=== PATIENT | female | born 1970 | race Caucasian/White ===

== ENCOUNTER → 2020-03-22 14:31 | Outpatient (CLI) | payer OTHER, SELFPAY ==
[2020-03-24 13:42] LABS: COVID19 Sendout Not Detected (Not Detect)
== END ==
PROVIDERS: PCP Physician Assistant; Visit Provider Physician Assistant
DX: Z01.818 Encounter for other preprocedural examination (principal)
CPT/HCPCS: 87635

== ENCOUNTER 2020-03-25 13:42 | Day surgery (SDC) | payer OTHER, SELFPAY ==
[2020-03-24 07:32] VITALS: BMI 48.7
[2020-03-25] VITALS (8 sets, daily range): BP systolic 126–224; BP diastolic 78–116; PULSE 87–100; RESP 12–18; TEMP 36.1–36.3; O2SAT 94–98; BMI 48.7
--- NOTE | 2020-03-25 | DI.RAD.S_ITS ---
PROCEDURE: XR LUMBAR SPINE 2-3V INDICATIONS: L5-S1 LAMINECTOMY TECHNIQUE: 2 views of the lumbar spine were acquired. COMPARISON: None. FINDINGS: Spot fluoroscopic intraoperative views demonstrate surgical instrumentation with the tip projecting in the posterior paraspinal soft tissues of the level of L5-S1. Dictated by: Karri Edmonds M.D. on 03/26/2020 at 12:54 Approved by: Karri Edmonds M.D. on 03/26/2020 at 13:01
--- NOTE | 2020-03-25 13:57 | PM.PREOP ---
Pre-operative Note COVID-19 COVID-19 status: Negative Result date/Date tested (Pos, Neg/Pending): 03/23/20 Interval Note History & Physical reviewed/Exam performed by Physician: Yes Changes to H&P: No
[2020-03-25] MEDS: LACTATED RINGERS 1,000 ML 42 ML IV (14:29)
[2020-03-25] MEDS: CEFAZOLIN 2 GM/100 ML FROZ.PIGGY IV (14:43)
--- NOTE | 2020-03-25 15:07 | SUR.OPER ---
Prone on spine table, head in foam head support, padded chest and pelvic supports, gel pad at knees, lower legs supported by pillows; nipples, genitalia and toes free of pressure, arms secured on foam padded arm boards at <90 degrees abduction. Tape over blanket at thigh secured to table.
[2020-03-25] MEDS: BUPIVACAINE 0.25% W/ EPI 30 ML VIAL INJ (15:12)
[2020-03-25] MEDS: methylPREDNISolone acet DEPO 40 MG/ML VIAL INJ (15:12)
--- NOTE | 2020-03-25 16:00 | P.OP_ITS ---
Operative Date/Time/Diagnoses Date of procedure: 03/25/20 Time of procedure: 15:00 Pre-op diagnosis: 1. L5-S1 disc herniation 2. L5-S1 radiculopathy Post-op diagnosis: same Procedure & Clinicians Procedure: 1. L5-S1 left microdiscectomy 2. Utitilization of microsurgical technique and operating microscope Same procedure as scheduled: Yes Indications: Patient has been having chronic back pain and worsening lumbar radiculopathy. Patient failed multiple conservative management with worsening pain weakness and numbness in her lower extremity. Patient has been having difficulty performing activity of daily living. After discussing risks benefits of treatment options, patient elected proceed with surgery. Surgeon: Rocio Ambrosio Analog Design Engineer: Tiara Upton'Brien Click Yes if Unassisted: No Anesthesia Type: General Operative Notes Closure Type: primary Specimen(s): none sent Estimated Blood Loss (mL): 5 Blood products transfused: none Procedure in detail: Patient was seen in the preoperative area. Risks and benefits of the surgery was discussed with the patient. Informed consent was obtained from the patient and placed in the chart. Surgical site was marked. Patient was taken to the operative room. General anesthesia was administered. Prophylactic antibiotic was given to the patient less than 30 min before the incision was made. Patient was placed into a prone position on the Fidel table. Patient's back was then prepped and draped in the sterile fashion. Time- out was performed at this time. Using AP and lateral C-arm imaging the interval between L5-S1 was identified and marked on patient's back. A 1 inch incision 1 in from midline was made on the left side. The fascia was incised in line with skin incision. Globus MARS retractors was placed inside the incision and docked onto the L5 lamina. Using microsurgical technique and operating microscope, a L5 laminotomy was performed using a Kerrison rongeur. Liagamentum flavum was resected at the site of the laminotomy. The disc space at L5-S1 was identified. Microdiscectomy was performed by incising the annulus with #11 blade. Microcurettes and pituitary was used to removed herniated disc fragments of disc from the epidural space. Patient's disc fragments was found to be adhered to the vertebral body as well as partially calcified due to the chronicity of the herniation. The fragments of disc was carefully resected along with resection of the scar tissue. After the microdiskectomy was completed, the area medial lateral superior and inferior to the area of the microdiskectomy was inspected and explored using a micro curette. No other impinging structure was identified. The wound was then irrigated with sterile normal saline. 40 mg Depo-Medrol was placed into the epidural space. The deep fascia was closed with 1-0 Vicryl. The subcutaneous tissue was closed with 2-0 Vicryl. The skin was closed with skin carolina. Patient tolerated the procedure well. There were no complications. Patient was transferred recovery room in stable condition. Complications: none Post-operative Condition: stable Disposition: same day surgery Plan for aftercare: Discharge to home
--- NOTE | 2020-03-25 16:21 | SUR.PHASEI ---
Notified Anesthesiology of BP of 157/100; No new orders. Patient asymptomatic.
--- NOTE | 2020-03-25 17:03 | SUR.PHASEII ---
Discharged patient in stable condition with all belongings returned. Home with in stable condition.
== END 2020-03-25 17:00 | disposition home or self-care (01) ==
PROVIDERS: PCP Physician Assistant; Referring Provider Physician Assistant; Visit Provider Orthopaedic Surgery Orthopaedic Surgery of the Spine
PROC: (CPT 63030; principal; 2020-03-25 15:15)
DX: M51.16 Intervertebral disc disorders with radiculopathy, lumbar region (principal); E11.9 Type 2 diabetes mellitus without complications; I25.2 Old myocardial infarction; I25.10 Atherosclerotic heart disease of native coronary artery without angina pectoris; I10 Essential (primary) hypertension; E78.5 Hyperlipidemia, unspecified; Z79.84 Long term (current) use of oral hypoglycemic drugs
CPT/HCPCS: 63030; 72100; 76000; J0690; J1030; J1100; J2250; J2405; J2704; J3010

== ENCOUNTER → 2020-08-05 15:19 | Outpatient (CLI) | payer OTHER, SELFPAY ==
[2020-08-05 16:18] LABS: COVID19 -Nasal RAPID Negative (Negative)
== END ==
PROVIDERS: PCP Physician Assistant; Visit Provider Physician Assistant
DX: Z11.59 Encounter for screening for other viral diseases (principal)
CPT/HCPCS: 87635

== ENCOUNTER 2020-08-07 12:11 | Day surgery (SDC) | payer OTHER, SELFPAY ==
[2020-08-05 07:50] VITALS: BMI 52.9
[2020-08-07] VITALS (21 sets, daily range): BP systolic 130–190; BP diastolic 68–104; PULSE 89–114; RESP 12–20; TEMP 36.2–37.4; O2SAT 95–100; BMI 46.7
--- NOTE | 2020-08-07 | DI.RAD.S_ITS ---
PROCEDURE: XR LUMBAR SPINE 2-3V INDICATIONS: L5-S1 TLIF TECHNIQUE: 2 views of the lumbar spine were acquired. COMPARISON: [facility], , XR LUMBAR SPINE 2-3V, 03/25/2020, 15:03. FINDINGS: Expected intraoperative alignment of L5-S1 posterior spinal fixation interbody cage graft. Dictated by: Karri Edmonds M.D. on 08/07/2020 at 16:59 Approved by: Karri Edmonds M.D. on 08/07/2020 at 17:00
[2020-08-07] MEDS: ACETAMINOPHEN 325 MG TABLET 975 MG PO (12:39)
--- NOTE | 2020-08-07 13:00 | PM.PREOP ---
Pre-operative Note COVID-19 COVID-19 status: Negative Result date/Date tested (Pos, Neg/Pending): 08/05/20 Interval Note History & Physical reviewed/Exam performed by Physician: Yes Changes to H&P: No
[2020-08-07] MEDS: LACTATED RINGERS 1,000 ML 42 ML IV (13:02)
[2020-08-07] MEDS: MIDAZOLAM 2 MG/2 ML VIAL IV (13:53)
[2020-08-07] MEDS: CEFAZOLIN 2 GM/100 ML FROZ.PIGGY IV ×2 (13:55→22:18)
[2020-08-07] MEDS: BUPIVACAINE LIPOSOME 266 MG/20 ML VIAL INJ (14:32)
[2020-08-07] MEDS: BUPIVACAINE 0.25% (PF) VIAL 30 ML INJ (14:34)
[2020-08-07] MEDS: EPINEPHrine 1 MG/ML IV (14:35)
--- NOTE | 2020-08-07 16:21 | P.OP_ITS ---
Operative Date/Time/Diagnoses Date of procedure: 08/07/20 Time of procedure: 13:22 Pre-op diagnosis: 1. L5-S1 recurrent disc herniation 2. L5-S1 spinal stenosis with radiculopathy Post-op diagnosis: same Procedure & Clinicians Procedure: 1. L5-S1 Postero-lateral and posterior interbody fusion 2. L5-S1 interbody cage placement. 3. L5-S1 decompressive laminectomy with bilateral facetecomies 4. L5-S1 Posterior non-segmental instrumentation 5. [place] of bone marrow from iliac crest 6. Utilization of microsurgical technique and operating microscope Same procedure as scheduled: Yes Indications: Patient has been having chronic back pain and worsening lumbar radiculopathy. Patient failed multiple conservative management with worsening pain weakness and numbness in her lower extremity. Patient has been having difficulty performing activity of daily living. After discussing risks benefits of treatment options, patient elected proceed with surgery. Surgeon: Rocio Ambrosio Music Professionals: Mayra Christine Click Yes if Unassisted: No Anesthesia Type: General Operative Notes Closure Type: primary Specimen(s): none sent Prosthetic devices, grafts, tissues, transplants, or devices: Globus revolve screws, Rise cage Estimated Blood Loss (mL): 50 Blood products transfused: none Procedure in detail: Patient was seen in the preoperative area. Risks and benefits of the surgery was discussed with the patient. Informed consent was obtained from the patient and placed in the chart. Surgical site was marked. Patient was taken to the operative room. General anesthesia was administered. Prophylactic antibiotic was given to the patient less than 30 min before the incision was made. Patient was placed into a prone position on the Fidel table. Patient's back was then prepped and draped in the sterile fashion. Time- out was performed at this time. Using AP and lateral C-arm imaging the interval between L5-S1 was identified and marked on patient's back. A 2 inch incision 2 in from midline was made on the Left side first. The fascia was incised in line with skin incision. Globus MARS retractors was placed inside the incision and docked onto the L5 lamina. Using microsurgical technique and operating microscope, a L5 laminectomy and L5-S1 facetectomy was performed using a Kerrison rongeur. The disc space at L5-S1 was identified. And a total diskectomy was performed at L5-S1 level. Patient was found to have significant amount of epidural scarring along with a large recurrent disc herniation. The disc herniation along the with scar tissue was resected during the process of total diskectomy. The laminectomy and facet ectomy along with diskectomy rendered the L5-S1 grossly unstable and required a fusion procedure at the same time. The endplates were decorticated using a rasp and shaver. The total diskectomy and decortication was performed at L5-S1 level in order to to accomplish a L5-S1 fusion. The local bone from the laminectomy and facetectomy was saved for local bone grafting. After the total diskectomy and decortication was completed, Trifecta bone graft material was combined with local bone that was harvested earlier. At this time, a separate skin is incision was made over the iliac crest. A Jamshidi needle was inserted into the iliac crest through a separate skin incision. 5 cc of bone marrow aspiration was obtained through the separate skin incision using a Jamshidi needle from the iliac crest. The bone marrow aspiration was combined with local bone and the Trifecta bone grafting material. The bone grafting material was placed into the L5-S1 interbody space along with a expandable cage. The cage was expanded to its maximum height using the torque limiting screwdriver. At this time a mirror image incision was made on the Right side. The fascia was incised in line with the skin incision. Globus MARS retractor was inserted and docked onto the L5-S1 posterolateral gutter. Using the power drill, posterior- lateral decortication was performed at L5-S1 level until bleeding cortical bone was identified. The remaining bone grafting material was placed into the L5-S1 posterior lateral gutter he order to accomplish posterolateral fusion at the L5- S1 level. Using the double C-arm technique, pedicle screws were placed into the L5-S1 pedicles bilaterally. This was done by placing the Jamshidi needle into the pedicles, then placing the guidewires over the Jamshidi needle, and finally placing the cannulated screws over the guidewires bilaterally. After the pedicle screws were placed, 2 titanium rods was locked into the heads of the pedicle screws using locking caps and torque limiting screwdriver. After all the hardware was placed, and confirmed with AP and lateral C-arm imaging, the wound was then irrigated with sterile normal saline and packed with Ray-Marlen gauze for 3 min to accomplish hemostasis. After the gauze was removed the deep fascia was closed with #1 Vicryl suture. The subcutaneous layer was closed with 2-0 Vicryl. The skin was closed with skin carolina. Patient tolerated the procedure well. There were no complications. Complications: none Post-operative Condition: stable Disposition: PACU Plan for aftercare: Admit to inpatient hospital
[2020-08-07] MEDS: hydrOXYzine pamoate 25 MG CAPSULE PO ×2 (16:48→23:49)
[2020-08-07] MEDS: OXYCODONE IR 5 MG TABLET PO (16:52)
[2020-08-07] MEDS: fentaNYL 100 MCG/2 ML INJ IV ×2 (17:09→17:18)
[2020-08-07] MEDS: SODIUM CHLORIDE 0.9% 1,000 ML 100 ML IV (18:16)
--- NOTE | 2020-08-07 18:29 | PC.NURSE ---
Addendum entered by Romelia Rivero R.N. 08/08/20 00:16: Pt desires to toilet in the bathroom. Assist x 1 reminding pt of precautions to log roll and not bend, twist or lift. Pt is able to move self in and out of bed with minimal assistance. Walker use. Able to void without difficulty. To sink for hs care. Returned to bed and BL calf scd's replaced. Continuous pulse oximeter in place. Original Note: Pt to room 203 from PACU awake and conversant. Pt's spouse is present. Pt admits to back pain/incisional pain 3/. Admits to baseline neuropathy to feet BL L > R. Dressings x 2 to central lower back are dry and intact. BL calf scd's in place as per MD order. Pt denies nausea and given sandwich as per request. Pt checks own blood sugar with implanted device utilizing own cell phone. Pt's glucose reading 118. Instructed not to attempt out of bed without calling for staff assistance. Pt and pt's spouse verbalize understanding.
[2020-08-07] MEDS: SENNOSIDES 8.6 MG TABLET 17.2 MG PO (20:01)
[2020-08-07] MEDS: METOPROLOL IR 50 MG TABLET PO (20:01)
[2020-08-07] MEDS: DOCUSATE 100 MG CAPSULE PO (20:01)
[2020-08-07] MEDS: ATORVASTATIN 20 MG TABLET 40 MG PO (20:02)
[2020-08-07] MEDS: OXYCODONE IR 5 MG TABLET 10 MG PO ×2 (20:02→23:49)
[2020-08-07] MEDS: INSULIN GLARGINE 100 UNIT/ML 3ML PEN 25 UNIT SUBCUT (20:05)
[2020-08-07] MEDS: ACETAMINOPHEN 325 MG TABLET 650 MG PO (23:49)
[2020-08-08] MEDS: CEFAZOLIN 2 GM/100 ML FROZ.PIGGY IV (05:05)
[2020-08-08 05:15] VITALS: BP 122/99; PULSE 87; RESP 12; TEMP 36.9; O2SAT 99
[2020-08-08 07:35] VITALS: BP 124/53; PULSE 85; RESP 16; TEMP 36.8; O2SAT 99
[2020-08-08] MEDS: METFORMIN HCL 500 MG TABLET 1000 MG PO (08:30)
[2020-08-08] MEDS: DOCUSATE 100 MG CAPSULE PO (08:30)
[2020-08-08] MEDS: INSULIN GLARGINE 100 UNIT/ML 3ML PEN 25 UNIT SUBCUT (08:34)
[2020-08-08] MEDS: FUROSEMIDE 20 MG TABLET PO (08:35)
[2020-08-08] MEDS: OXYCODONE IR 5 MG TABLET 10 MG PO (08:56)
--- NOTE | 2020-08-08 09:20 | PT.IIE ---
Current Diagnoses Intervertebral disc disorders with radiculopathy, lumbar region (08/07/20) Other intervertebral disc displacement, lumbar region (08/07/20) Other specified postprocedural states (08/07/20) Surgery Performed Operation Date: 08/07/20 13:45 Actual Procedures p L5-S1 TLIF - Rocio Ambrosio MD Surgical History (Last Reviewed 08/08/20 @ 09:51 by Claudio Becker PA-C) History of PTCA (2013) Hx of toe surgery Hx of tonsillectomy S/P lumbar microdiscectomy (03/25/20) Medical History (Last Reviewed 08/08/20 @ 09:51 by Claudio Becker PA-C) Acute coronary syndrome (2013) Anxiety Asthma CAD (coronary artery disease) Diabetes (~2017) Diabetic neuropathy Dystonia Easy bruisability HLD (hyperlipidemia) HTN (hypertension) Obesity, morbid, BMI 50 or higher Seasonal allergies Physical Therapy Inpatient Evaluation/Re-Eval M1 PT/OT-IP Prior Functional Status Start: 08/08/20 11:37 Freq: NEEDED Status: Active Protocol: Document 08/08/20 09:20 AB (Rec: 08/08/20 11:51 AB [id number]) Medical Review Prior Functional Status Medical History Reviewed Yes Communication able to make needs known Mobility and Gait pt stated that she is independent with all mobilities an dambulation without AD Social History Household Members spouse Living Arrangements House Number of Floors (Floors) One Floor Number of Stairs To Enter/Railing? 1 step to enter Home Environment High Toilet,Tub/Shower Home Equipment Front Wheel Walker,Four Wheel Walker,Shower Seat with Backrest,Hand Held Shower Additional Social History Comment has an adjustable bed and a recliner; pt plans to use her recliner to sleep on on the first few weeks M2 PT-IP Current Condition Start: 08/08/20 11:37 Freq: NEEDED Status: Active Protocol: Document 08/08/20 09:20 AB (Rec: 08/08/20 11:51 AB [email or web address]) Physical Therapy Current Condition Current Condition Evaluation Date 08/08/20 Treatment Diagnosis s/p L5S1 fusion; difficulty in walking Onset Date 08/07/20 Precautions Lumbar Precautions Log Roll,No Twisting,Limit Bending,Lifting Restriction of 10 lbs,Gait Belt above Incisional Area M3 PT-IP Subjective Start: 08/08/20 11:37 Freq: NEEDED Status: Active Protocol: Document 08/08/20 09:20 AB (Rec: 08/08/20 11:51 AB [email or web address]) Subjective Physical Therapy Visit Type Type Initial Evaluation Visit Start Time 09:20 Visit Stop Time 10:04 Total Visit Minutes 44 Number of ROLLER LEVELER Visits 0 Physical Therapy Visit Comments Patient Comments pt is agreeable to do PT Therapy Pain Assessment Pain When Pain Assessed At Rest Pain Present Pain Present Pain Reported Location Lower Back Scale Used pain scale not stated Pain Management Techniques Distraction,Modification of Treatment,Re-positioning, Timing of Activity with Medications M4 PT-IP Mobility and Gait Start: 08/08/20 11:37 Freq: NEEDED Status: Active Protocol: Document 08/08/20 09:20 AB (Rec: 08/08/20 11:51 AB [email or web address]) PT-Bed Mobility Assessment Rolling Type of Rolling Log Rolling Level of Assist Standby Assistance Supine to Sit Supine to Sit Standby Assistance Sit to Supine Sit to Supine Standby Assistance PT-Transfer Assessment Sit to and From Stand Sit to and from Stand Standby Assistance Equipment Transfer Assistive Device Bed Rail,Front Wheeled Walker Orthotic/Prosthetic Devices or Brace: No Transfers Transfer Destination Chair Transfer Technique ambulated using FWW Transfer Ability Level of Assist Standby Assistance,Use of Upper Extremities Comments Mobility Comments Pt educated with back precautions and log roll bed mobility. completed supine to sit SBA with cues. completed again with SBA and no cues needed. completed sit to stand x 3 reps SBA with initial cues and then without cues. ambulated ~ 75 ft towards the stairs using FWW SBA and completed up/down platform step using FWW SBA with initial cues for techniques and completed again without cues. pt ambulated back to his room using FWW SBA . agreed to sit up on chair. positioned on chair. call light and table placed within reach. Gait Assessment Gait Gait Assistance Required: Standby Assistance Distance (Feet) 75 Able to Maintain Weight Bearing Status Yes During Gait Assistive Devices Assistive Device Gait Belt,Front Wheeled Walker Orthotic/Prosthetic Devices or Brace: No Gait Deviations General Gait Pattern Antalgic,Step-to Gait,Wide Based Gait Factors Limiting Gait Function Factors Limiting Gait Function Decreased Activity Tolerance, Decreased Strength,Limited Range of Motion,Pain,Poor Balance Comments Gait Comments pls refer to mobility section Stair Climbing Assessment Evaluation Level of Assist On Stairs Standby Assistance Devices Stair Climbing Assistive Devices Front Wheel Walker Technique/Endurance Stair Climbing Direction Ascend and Descend Stair Climbing Technique Step to Step Number of Steps Climbed 1 Query Text: Stair Climbing Set # Repetitions (reps) 2 Comments Stair Climbing Comments pls refer to mobility section PT-Balance Assessment Sitting Balance and Reactions Static Sitting Balance Ability Good Dynamic Sitting Balance Ability Good Standing Balance and Reactions Static Standing Balance Ability Fair Dynamic Standing Balance Ability Fair Device Used FWW M5 PT-IP Objective Assessments Start: 08/08/20 11:37 Freq: NEEDED Status: Active Protocol: Document 08/08/20 09:20 AB (Rec: 08/08/20 11:51 [email or web address]) Orientation Orientation/Cognition Level of Alertness Alert Orientation Name,Age,Birthday,Month,Date, Year,Day of Week,Place, Situation Language Function Ability No Deficits Noted Safety Awareness Understands Safety Issues Memory Description No Deficits Noted Gross Range of Motion Lower Extremity ROM Assessment Within Functional Limits Strength Lower Extremity Strength Hip 3+/5 Knee 4-/5 Coordination Assessment Gross Coordination Gross Coordination WNL Sensation Assessment Sensation Gross Sensation WNL Muscle Tone Muscle Tone WNL Yes M6 PT-IP Treatment Start: 08/08/20 11:37 Freq: NEEDED Status: Active Protocol: Document 08/08/20 09:20 AB (Rec: 08/08/20 11:51 [email or web address]) Physical Therapy Treatment Education Education Provided Precautions,Weight Bearing Status,Post-Op Packet,Safety M7 PT-IP Assessment and Plan Start: 08/08/20 11:37 Freq: NEEDED Status: Active Protocol: Document 08/08/20 09:20 AB (Rec: 08/08/20 11:51 [email or web address]) PT Summary Assessment and Plan Potential Rehabilitation Potential Good Status of Condition at Evaluation Stable Summary Impairments Pain,ROM,Strength,Balance, Coordination,Sensation,Tone, Cognition,Bed Mobility, Transfers,Gait,Activity Tolerance Assessment Summary pt requiring SBA with mobility and plans to go home with spouse to assist her. pt may go home when medically stable. Goals Bed Mobility Goal Independent Transfer Goal Independent,Front Wheeled Walker Gait Goal Independent,Front Wheel Walker Gait Distance 200 Other Goals up/down 1 step using FWW mod I Days to Meet Goals 3 Frequency of Treatment Frequency Of Treatment Twice a Day Treatment Plan Physical Therapy Treatment Plan Bed Mobility Training,Transfer Training,Gait Training, Therapeutic Exercise,Balance Retraining,Post Op Education, Discharge Planning,Hot or Cold Pack,Neuromuscular Re-ed, Coordination Retraining,Manual Therapy Recommendations To Nursing Amount of Assist Needed Standby Assistance Discharge Recommendations PT Discharge Recommendations Home with Assistance Transportation Needs at Discharge Private Vehicle
--- NOTE | 2020-08-08 09:49 | PM.DS.1 ---
History of Present Illness History of Present Illness Date Patient Seen: 08/08/20 Time Patient Seen: 09:50 Chief complaint: LUMBAR TLIF *OPB* Narrative: Patient's pain is been moderate to severe. Denies fever or chills. No nausea or vomiting. No chest pain or shortness of breath. Patient does have assistance at home. She was up earlier this morning walking in the halls. Discharge Providers Provider Discharge Date: 08/08/20 Primary care physician: Irina Sawant PA-C Consults: 08/07/20 17:51 Consult to Occupational Therapy Evaluate & Treat Comment: Physician Instructions: Evaluate and treat Consult to Physical Therapy Evaluate & Treat Comment: Physician Instructions: Evaluate and Treat 08/07/20 18:00 Consult to Dietitian, Adult Routine Comment: Reason For Exam: diabetic managing A1C Discharge provider: Claudio Becker PA-C Summary Hospital Course Discharge Diagnosis: 1. L5-S1 recurrent disc herniation 2. L5-S1 spinal stenosis with radiculopathy Hospital Course: 1. L5-S1 Postero-lateral and posterior interbody fusion 2. L5-S1 interbody cage placement. 3. L5-S1 decompressive laminectomy with bilateral facetecomies 4. L5-S1 Posterior non-segmental instrumentation 5. [place] of bone marrow from iliac crest 6. Utilization of microsurgical technique and operating microscope Same procedure as scheduled: Yes Indications: Patient has been having chronic back pain and worsening lumbar radiculopathy. Patient failed multiple conservative management with worsening pain weakness and numbness in her lower extremity. Patient has been having difficulty performing activity of daily living. After discussing risks benefits of treatment options, patient elected proceed with surgery. Surgeon: Rocio Ambrosio Efficiency Engineer: Mayra Christine Click Yes if Unassisted: No Anesthesia Type: General Operative Notes Closure Type: primary Specimen(s): none sent Prosthetic devices, grafts, tissues, transplants, or devices: Globus revolve screws, Rise cage Estimated Blood Loss (mL): 50 Blood products transfused: none Status at Discharge Cognitive/behavioral status at discharge: at baseline, oriented Functional status at discharge: uses cane/walker Overall status at discharge: patient is progressing back to baseline Time Spent with Patient Time spent: Less than 30 minutes Exam Vital Signs (past 8 hours): - 08/08/20 05:15 08/08/20 07:35 Temperature 98.5 F 98.3 F Pulse Rate 87 85 Respiratory Rate 12 16 Blood Pressure 122/99 H 124/53 L Pulse Oximetry 99 99 Oxygen Delivery Method Room Air Oxygen Flow Rate 0 Narrative Exam Narrative: 50-year-old female sitting comfortably at bedside in no apparent distress. Neurovascular status is intact to the bilateral lower extremities. Dressing is clean and dry. FORMERLY [facility], [facility] Medical History Acute coronary syndrome (2013) Anxiety Asthma CAD (coronary artery disease) Diabetes (~2017) Diabetic neuropathy Dystonia Easy bruisability HLD (hyperlipidemia) HTN (hypertension) Obesity, morbid, BMI 50 or higher Seasonal allergies Surgical History History of PTCA (2013) Hx of toe surgery Hx of tonsillectomy S/P lumbar microdiscectomy (03/25/20) Social History household members: spouse Smoking Status: Former smoker alcohol intake: current Discharge Assessment & Plan Assessment and Plan Assessment: Patient progressing as expected status post L5-S1 fusion. She will work with physical therapy this morning and be discharged home in stable condition. Limit bending, twisting, lifting. Discharge Plan Discharge Plan Patient Disposition: Home Discharge orders & Medications Discharge Orders: Discharge (Order); Ordered 08/08/20 Ordered By: Claudio Becker Prescriptions: New acetaminophen 325 mg Tablet 650 mg PO Q6HR PRN (Reason: Pain, Mild (1-3)) Qty: 60 RF: 0 docusate sodium [DOK] 100 mg Capsule 100 mg PO BID Qty: 20 RF: 0 oxycodone 5 mg Tablet 10 mg PO Q3HR PRN (Reason: Pain, Severe (7-10)) Qty: 60 RF: 0 hydroxyzine pamoate 25 mg Capsule 25 mg PO Q4HR PRN (Reason: Nausea And Vomiting) Qty: 40 RF: 0 Continued atorvastatin 40 mg Tablet 40 mg PO BEDTIME RF: 0 aspirin 81 mg Tablet,Delayed Release (Dr/Ec) 81 mg PO DAILY RF: 0 metformin 1,000 mg Tablet 1,000 mg PO BID RF: 0 losartan 25 mg Tablet 25 mg PO DAILY RF: 0 metoprolol tartrate 50 mg Tablet 50 mg PO BID RF: 0 furosemide 20 mg Tablet 20 mg PO DAILY RF: 0 Basaglar KwikPen U-100 Insulin 100 unit/mL (3 mL) Insulin Pen 25 unit SUBCUT BID RF: 0 Ozempic 1 mg/dose (2 mg/1.5 mL) Pen Injector 1 mg SUBCUT QWEEK RF: 0 Jardiance 10 mg Tablet 10 mg PO DAILY RF: 0 Follow up/Referrals: Rocio Ambrosio MD [Physician] - (2 wks) Irina Sawant PA-C [Primary Care Provider] - Diet/Activity/Treatments Diet: Carb-consistent/Diabetic Activity: Limit bending, lifting, twisting Skin/Wound/Dressing Care Report to your healthcare provider any signs of infection, such as:: chills, fever, increased pain and unusual drainage Dressing: keep clean and dry Visit Report/Discharge Packet Instructions: DI for Transforaminal Lumbar Interbody Fusion Stand Alone Forms: Surgery Discharge Discharge Data Primary Care Provider: Irina Sawant Attending Provider: Rocio Ambrosio Quality VTE Deep Vein Thrombosis/Pulmonary Embolism Present on Admission: No
--- NOTE | 2020-08-08 10:14 | CM.DANOTE ---
Patient is a 50 year old female who was admitted on 08/07/20 for TLIF. Pt has [employer] for insurance and her PCP is Irina Sawant. EMR was reviewed. Per Ortho , pt tolerated procedure well and was last admitted in February 2020 for discectomy but then failed outpt conservative tx. Per Ortho BRANDY, pt likely stable for d/c later today pending PT/OT eval. SW met bedside with pt and explained role and pt confirms she lives at home with her spouse in [facility] and pt has been mostly independent with ADL's and has not been using DME to ambulate but plans to get a walker from a family member prior to d/c to provide additional stability while healing. Pt states her spouse works but has the weekend off and took Monday off to be available for assist and can take more time off if needed. Spouse will be bedside later this morning. Pt states she has already ambulated twice in the halls early this morning and has some pain but states its a good pain, I can already tell I'm better since surgery. PT now in the room for initial eval and recommendations. Plan: SW to follow closely after PT and OT eval and recommendations to confirm pt safe for d/c home via spouse POV later today and any further identified needs. VELMA Amador Discharge Planning/Care Management CM Discharge Assessment Start: 08/08/20 10:13 Freq: Status: Active Protocol: Document 08/08/20 10:13 BF (Rec: 08/08/20 10:14 [id number]) Discharge Planning Assessment Assigned Logging Specialist VELMA Portillo DPOA/Assigned Designee Name informally spouse Shiraz Contact Information [phone] Advance Directives? No Advance Directives on File No History Provided By Patient,Medical Record Has Patient been admitted in last 30 No days? Prior Living Arrangements House Household Members spouse Type of transporation used prior to Drives own vehicle admit Independent with ADL's Yes Is patient alert and oriented? Yes Caregiver for Another No DME Already Rented / Owned FWW / Walker Comment Getting walker from a family member to use at d/c Patient/Family Preference OP PT Therapy Barriers to Discharge No Discharge Plan Home Community Services Physical Therapy,Occupational Therapy Transportation Arrangement Spouse will be available later this morning and tomorrow for transport at d/c Referrals Initiated None needed Whiteboard Updated in Patient Room with Yes name and ext. # of Logging Specialist Review Status In Process Please Provide Date Initial DC 08/08/20 Assessment Was Performed Next Review Type Continued Stay Review Pre-Anesthesia Assessment Start: 08/05/20 07:50 Freq: Status: Active Protocol: Document 08/05/20 07:50 CAB (Rec: 08/05/20 08:04 CAB [id number]) Pre-Anesthesia Assessment PAC Comment Pt s/p microdiscectomy 03/25/20 , brief chart review with pt over phone, she was not aware she was having hardware placed . Reviewed medications and gave her OPD # to call if questions/concerns with blood sugar dos. Last known A1c 9.8 % 02/11/20 Patient Information Reviewed Via Chart Review Diagnostic Results BMP/CMP,CBC,EKG,Urinalysis Comment Outside labs/EKG scanned, COVID screen @ 08/05/20 Primary Care Provider Irina Sawant Seen Specialist in Last 12 Months Yes Specialist Seen Parking Manager,Orthopedist Primary Language Citizen Of [place] Case Preparer And Liner Required No Height 165.1 cm Weight 144.242 kg Body Mass Index (BMI) 52.9 Hearing Ability Normal Visual Assist Magnifying Glass Dentition Type Teeth, Natural Present Barriers to Learning None Hx Anesthesia Reactions No Hx Family Anesthesia Reaction Yes: I think my Mom did, terrible headache for a week after Hx Malignant Hyperthermia No Hx Blood Transfusions No Anesthesia Review Requested No Clay Burner No alcohol intake current alcohol intake frequency holidays/special occasions only Smoking Status Former smoker how long ago did patient quit smoking Quit 2013 Substance Use Type does not use Pain Present Pain Reported Musculoskeletal Symptoms Abnormal Gait,Back Pain, Difficulty Walking,Numbness, Radiating Pain into Limb History of Falling (Recent or History of Yes ) Patient is completely paralyzed or No completely immobile Mental Status Oriented to own ability Is patient on oxygen? No Does patient have HAZEL/SOB Yes: HAZEL Hx Sleep Apnea No CPAP/BIPAP use not prescribed Currently Taking a Beta Viv Yes: Metoprolol Can You Climb a Flight of Stairs Without No: Pt feels r/t back/leg SOB issues Hx Chest Pain No Hx SOB Yes: Pt feels r/t back/leg issues Hx Syncope or Dizziness No Anti-Coagulant Therapy No Has a Vehicle Care Specialist No: Last visit w/Cardiology 2015-has not followed r/t cost Cardiac Testing No Hx Pacemaker/ICD No Pacemaker Rep Required? No Diet Type At Home Low Carb dysphagia No Gastrointestinal Symptoms Constipation,Diarrhea Urinary Catheter Present No Hx Urinary Self Catheterization No Diabetes Yes HgbA1C 9.8 Date 02/11/20 Patient No Lactating No Hx Drug Resistant Organism No Presence of External or Internal Medical No Devices Have you had any close contact with Unknown someone diagnosed with COVID-19? Marital Status Lives With spouse Support System Spouse Does the Patient Have Assistance After Yes Surgery Patient Discharge Plan Description Return Home Feels Safe in Current Environment Yes Been Physically Hurt or Threatened By a No Person in Current Environment Do you have thoughts of harming yourself None or others? Are you currently considering suicide? No Do you have a plan to hurt yourself or No Plan others? Do You Have Any Spiritual Beliefs That No May Affect Your HC Choices? Do You Have Any Cultural Practices That No May Affect Your HC Choices? Comment [facility] Health Care Proxy/Next of Kin Pablo () Health Care Proxy Emergency Contact Name Evie (daughter) Amelia ( daughter) Emergency Contact Phone Number Evie: [phone] Amelia: [phone] Advance Directives? No Power of [employer] Financial Developer No PAC Instructions Diabetes instructions
[2020-08-08 10:39] VITALS: BP 151/86; PULSE 95
[2020-08-08] MEDS: LOSARTAN 25 MG TABLET PO (10:39)
--- NOTE | 2020-08-08 11:15 | OT.IP.EVAL ---
Current Diagnoses Intervertebral disc disorders with radiculopathy, lumbar region (08/07/20) Other intervertebral disc displacement, lumbar region (08/07/20) Other specified postprocedural states (08/07/20) Surgery Performed Operation Date: 08/07/20 13:45 Actual Procedures p L5-S1 TLIF - Rocio Ambrosio MD Past Medical History (Last Reviewed 08/08/20 @ 09:51 by Claudio Becker PA-C) Acute coronary syndrome (2013) Anxiety Asthma CAD (coronary artery disease) Diabetes (~2017) Diabetic neuropathy Dystonia Easy bruisability HLD (hyperlipidemia) HTN (hypertension) Obesity, morbid, BMI 50 or higher Seasonal allergies Surgical History (Last Reviewed 08/08/20 @ 09:51 by Claudio Becker PA-C) History of PTCA (2013) Hx of toe surgery Hx of tonsillectomy S/P lumbar microdiscectomy (03/25/20) Occupational Therapy Inpatient Evaluation/Re-Eval M1 PT/OT-IP Prior Functional Status Start: 08/08/20 11:37 Freq: NEEDED Status: Active Protocol: Document 08/08/20 13:58 CGR (Rec: 08/08/20 14:15 CGR [id number]) Medical Review Prior Functional Status Medical History Reviewed Yes Communication able to make needs known Mobility and Gait pt stated that she is independent with all mobilities and ambulation without AD Activities of Daily Living and IADL's Pt was IND in most ADLs but pt 's assists with LB dressing and pt states she only showers when her is home. Social History Household Members spouse Living Arrangements House Number of Floors (Floors) One Floor Number of Stairs To Enter/Railing? 1 step to enter Home Environment High Toilet,Walk in Shower,Tub /Shower Home Equipment Front Wheel Walker,Tub Transfer Bench,Hand Held Shower Additional Social History Comment Pt has an adjustable bed. M2 OT-IP Current Condition Start: 08/08/20 14:16 Freq: Status: Active Protocol: Document 08/08/20 13:58 CGR (Rec: 08/08/20 14:15 CGR [email or web address]) Occupational Therapy Current Condition Current Condition Evaluation Date 08/08/20 Treatment Diagnosis L5-S1 Diagnosis Onset Date 08/07/20 Post Operative Precautions Lumbar Precautions Log Roll,No Twisting,Limit Bending,Lifting Restriction of 10 lbs,Gait Belt above Incisional Area M3 OT- IP Subjective and Pain Start: 08/08/20 14:16 Freq: Status: Active Protocol: Document 08/08/20 13:58 CGR (Rec: 08/08/20 14:15 CGR [email or web address]) OT- Subjective Occupational Therapy Visit Type Type Initial Evaluation Visit Start Time 10:07 Visit Stop Time 11:15 Total Visit Minutes 68 Notes Pt's entered the room late in session. OT Pain Assessment Pain When Pain Assessed At Rest Pain Present Pain Present Pain Reported Location Lower Back Intensity 5 Scale Used Numeric (0 - 10) Management Techniques Distraction,Modification of Treatment,Re-positioning M4 OT- IP ADL's Start: 08/08/20 14:16 Freq: Status: Active Protocol: Document 08/08/20 13:58 CGR (Rec: 08/08/20 14:15 CGR [email or web address]) OT [id number] General Evaluation Self-Feeding Ability Independent OT ADL-Grooming General Evaluation Grooming Ability Independent Areas Needing Assistance Retrieving/Set-up of Grooming Items,Face Washing Comments OT Grooming Comments Standing at sink for ADLs OT ADL-Oral Care Comments Oral Care Comments Not performed OT ADL-Dressing General Eval Upper Body Dressing Ability Independent Lower Body Dressing Ability Standby Assistance Areas Needing Assistance Retrieving/Set-up of Clothing, Pull-Over Shirt,Underpants/ Brief,Pants/Shorts Assistive Devices Dressing Assistive Devices Process Operator Comments OT Dressing Comments Pt declined sock training but did well using grease maker head for underwear and pants. OT ADL-Toileting General Evaluation Toileting Ability Moderate Assistance Areas Needing Assistance Perform Perineal Hygiene Devices Toileting Assistive Devices Grab Bars Comments OT Toileting Comments Pt urinated seated on toilet but needed assist for pericare . Discussed different options for performing pericare at home. OT ADL-Bathing Comments OT Bathing Comments Not performed M5 OT- IP IADL's Start: 08/08/20 14:16 Freq: Status: Active Protocol: Document 08/08/20 13:58 CGR (Rec: 08/08/20 14:15 CGR [email or web address]) OT-Instrumental Activities of Daily Living Deficits IADL Deficits Identified No Deficits Home Safety Awareness Awareness of Need for Assistance at Home Good Awareness Ability to Problem Solve Emergency Able to Problem Solve Situations Medication Management Medication Management No Deficits Identified Money Management Money Management No Deficits Identified Meal Preparation Meal Preparation No Deficits Identified Law Examiner Law Examiner No Deficits Identified Driving Driving Comments Pt understands that she can not drive at this time. M6 OT- IP Functional Cognition Start: 08/08/20 14:16 Freq: Status: Active Protocol: Document 08/08/20 13:58 CGR (Rec: 08/08/20 14:15 CGR [email or web address]) Cognitive Factors Limiting Selfcare Function Cognitive Ability Level of Alertness Alert Patient Orientation Name,Age,Birthday,Month,Date, Year,Day of Week,Place, Situation Attention Span Ability Capable of Focused Attention, Capable of Sustained Attention Ability to Follow Commands Able to Follow Multi-Step Commands Memory Description No Deficits Noted Safety Awareness No Deficits Noted OT- Vision and Hearing OT- Hearing Assessment OT- Hearing Assessment WFL OT- Vision Assessment Visual Acuity Glasses For Reading Visual Attentiveness WFL Occular Pursuits WFL Visual Convergence WFL M7 OT- IP Mobility and Balance Start: 08/08/20 14:16 Freq: Status: Active Protocol: Document 08/08/20 13:58 CGR (Rec: 08/08/20 14:15 CGR [email or web address]) OT-Transfer Assessment Sit to and From Stand Sit to and from Stand Contact Guard Assistance Transfers Transfer Ability Contact Guard Assistance Technique Transfer Destination Chair,Toilet Transfer Technique Stand Step Pivot Devices Transfer Assistive Devices Gait Belt,Front Wheeled Walker Comments Mobility Comments Mobility around the room OT- Balance Assessment Sitting Balance and Reactions Static Sitting Balance Ability Good Dynamic Sitting Balance Ability Good M8 OT- IP Objective Assessments Start: 08/08/20 14:16 Freq: Status: Active Protocol: Document 08/08/20 13:58 CGR (Rec: 08/08/20 14:15 CGR [email or web address]) OT Gross Range of Motion Upper Extremity Range of Motion Assessment Within Functional Limits OT Strength Upper Extremity Strength Assessment Within Functional Limits Comments Strength Comments grossly 4/5 OT- Coordination Assessment Upper Extremity Finger to Nose Test Within Functional Limits Finger Tapping Test Within Functional Limits OT-Muscle Tone Assessment Muscle Tone WNL Yes OT Sensation Assessment Edema Edema Absent M9 OT- IP Assessment and Plan Start: 08/08/20 14:16 Freq: Status: Active Protocol: Document 08/08/20 13:58 CGR (Rec: 08/08/20 14:15 CGR [email or web address]) OT Summary Assessment and Plan Potential Rehabilitation Potential Excellent Analytic Complexity at Evaluation Low Summary OT Impairments Pain,Balance,Functional Mobility,Dressing,Toileting, Bathing,Toilet Transfers, Shower Transfers,Activity Tolerance Progress Towards Goals Slow Progress due to Pain Assessment Summary Pt presents as a low complexity evaluation s/p admit for L5-S1 sx. Pt educated on dressing, bathing, home safety and mobility. Pt is hoping for discharge home today. No further needs. Frequency of Treatment Frequency Of Treatment Discharge Discharge Recommendations OT Discharge Recommendations Home with Assistance Transportation Needs at Discharge Private Vehicle
[2020-08-08 12:07] VITALS: BP 151/86; PULSE 95; RESP 14; TEMP 36.7; O2SAT 100
--- NOTE | 2020-08-08 14:03 | PC.NURSE ---
Pt a&o, follows commands,voicing appropriate concerns. Working with OT. up in room with sba. Following commands. in attendance for d/c instructions. Pt assisted too car and did well getting in car. IV d/c'd intact.
== END 2020-08-08 13:10 | disposition home or self-care (01) ==
LOC: OR 12:12 → AC 12:14
PROVIDERS: PCP Physician Assistant; Referring Provider Orthopaedic Surgery Orthopaedic Surgery of the Spine; Visit Provider Orthopaedic Surgery Orthopaedic Surgery of the Spine
PROC: (CPT 22633; principal; 2020-08-07 13:45)
DX: M51.17 Intervertebral disc disorders with radiculopathy, lumbosacral region (principal); M48.07 Spinal stenosis, lumbosacral region; E66.01 Morbid (severe) obesity due to excess calories; E78.5 Hyperlipidemia, unspecified; I10 Essential (primary) hypertension; J45.909 Unspecified asthma, uncomplicated; I25.10 Atherosclerotic heart disease of native coronary artery without angina pectoris; E11.40 Type 2 diabetes mellitus with diabetic neuropathy, unspecified; Z79.4 Long term (current) use of insulin
CPT/HCPCS: 22633; 22840; 20939; 22853; 63047; 72100; 76000; 82962; 97161; 97165; 97530; 97535; C1776; C9290; J0171; J0330; J0690; J2250; J2704; J3010